=== PATIENT | female | born 1970 | race Asian ===

== ENCOUNTER 2022-01-30 12:07 | Emergency (ER) | payer BC ==
[~2022-01-30] VITALS: Ht 154.9 cm; Wt 53.5 kg
[2022-01-30 12:10] VITALS: BP_SYST 115
--- NOTE | 2022-01-30 13:15 | NUR ---
Patient to ER bed 02 to gown for evaluation. Side rails up. Report given to Everette COOK.
[2022-01-30] MEDS ORDERED: MAG HYDROX/AL HYDROX/SIMETH 30 ML, LIDOCAINE VISCOUS 2% 15ML (PO) 15 ML, DICYCLOMINE HC... PO ONE ×3 (13:45)
--- NOTE | 2022-01-30 14:04 | NUR ---
Pt present to ED wqith complaint of n/v and upper abd pain. AOx4 GCS 15. at the bedside. Pt seen by ED physician at bedside
[2022-01-30 14:22] LABS: BASOPHILS % (AUTO) 0.2 % (0.0-2.0); EOSINOPHILS % (AUTO) 0.3 % (0.0-4.0); HEMATOCRIT 42.7 % (36-48); HEMOGLOBIN 14.8 g/dL (12.0-16.0); LYMPHOCYTES % (AUTO) 11.7 % (20.5-51.5); MEAN CORPUSCULAR HEMOGLOBIN 29 pg (27-31); MEAN CORPUSCULAR HGB CONC 35 % (32-36); MEAN CORPUSCULAR VOLUME 84 fL (79.0-98.0); MONOCYTES # (AUTO) 0.3 K/uL (0.0-1.0); MONOCYTES % (AUTO) 3.4 % (1.7-9.3); NEUTROPHILS # (AUTO) 7.4 K/uL (1.8-7.7); NEUTROPHILS % (AUTO) 84.4 % (40.0-70.0); PLATELET COUNT (AUTO) 243 K/uL (130-430); RED BLOOD CELL COUNT(AUTO) 5.09 MIL/uL (4.2-6.2); RED CELL DISTRIBUTION WIDTH 12.3 % (9.0-15.0); WHITE BLOOD COUNT (AUTO) 8.7 K/uL (4.8-10.8)
[2022-01-30 14:27] LABS: CALCIUM 8.7 mg/dL (8.4-11.0); CREATININE 0.47 mg/dL (0.55-1.30); POTASSIUM 3.9 mmol/L (3.5-5.1)
[2022-01-30 14:32] LABS: TOTAL BILIRUBIN 1.5 mg/dL (0.0-1.0)
[2022-01-30 15:06] LABS: ALBUMIN 3.6 g/dL (3.4-4.8)
[2022-01-30] MEDS ORDERED: PANT20TA2 PO (15:39)
--- NOTE | 2022-01-30 16:08 | NUR ---
Patient given written and verbal discharge instructions and verbalizes understanding. ER MD discussed with patient the results and treatment provided. Patient in stable condition. ID arm band removed. Rx of protonix given. Patient educated on pain management and to follow up with PMD. Pain Scale 0/10. Opportunity for questions provided and answered. Medication side effect fact sheet provided. Pt self ambulated out of ED on own strength accompanied by .
[2022-01-30 16:11] VITALS: BP_SYST 128
== END 2022-01-30 16:08 | disposition home or self-care (01) ==
LOC: SED 12:07
DX: K29.70 Gastritis, unspecified, without bleeding (principal)
CPT/HCPCS: 36415; 74021; 80053; 83690; 85025; 99284; J2001